=== PATIENT | female | born 1975 | race Caucasian/White ===

== ENCOUNTER 2021-12-09 18:38 | Inpatient (IN) | payer BC, SELFPAY ==
[2021-12-09 18:39] VITALS: BP 147/82; PULSE 115; RESP 20; TEMP 37.2; O2SAT 98; BMI 47.8
--- NOTE | 2021-12-09 18:55 | CT_ITS ---
STUDY: CT PELVIS WITH CONTRAST REASON FOR EXAM: Female, 46 years old. Buttock abscess RADIATION DOSAGE (If Supplied By Facility): CTDIvol = ( 28.21 ) mGy, DLP = ( 924.60 ) mGycm TECHNIQUE: Transaxial imaging of the pelvis was performed without oral contrast. IV 100mL Isovue-300 was administered intravenously. Individualized dose optimization techniques were used for this CT. COMPARISON: None. FINDINGS: Normal urinary bladder. Normal uterus. Normal visualized small intestine. Normal visualized colon. Normal appendix. There is no pelvic fluid. There is no pelvic lymphadenopathy or mass lesion. Normal visualized pelvic arteries. Extensive subcutaneous edema around the buttocks with an area of more focal fluid attenuation may indicate cellulitis. No focal abscess is identified. Normal osseous structures. CT/Pelvis WITH IV Contrast IMPRESSION: Extensive subcutaneous edema around the buttocks with an area of more focal fluid attenuation may indicate cellulitis/phlegmon. No focal abscess is identified. Electronically Signed: Chago Mera MD at 19:58 EDT ,
--- NOTE | 2021-12-09 18:56 | EX.ED.DYSGE1 ---
HPI History of Present Illness Chief Complaint: Abscess Detail of Chief Complaint: Left buttock abscess that started 5 days ago Informant: patient Narrative Narrative: Patient presents with soft tissue swelling and suspected abscess to left buttock that started 5 days ago. Patient denies any fevers or chills or sweats. Patient went to urgent care and was referred to the ER. Patient complains of pain to the area. PFSH PFSH Home Medications ibuprofen 600 mg PO Q6H PRN PRN #30 tablet 07/29/13 [Rx Last Taken Unknown] Allergy/AdvReac Type Severity Reaction Status Date / Time naproxen [From Naprosyn] Allergy Itching Verified 12/09/21 18:39 Family History Other Diabetes Heart disease Hypertension Surgical History H/O removal of cyst History of section History of cholecystectomy History of tonsillectomy Social History Smoking Status: Current every day smoker ROS ROS ED Constitutional Constitutional ED: Reports systems reviewed and no addt'l complaints, except as documented; Denies body ache(s), change in weight or chills Eyes Eyes: Denies acute decrease in peripheral vision, change in vision, double vision or loss of vision ENT ENT ED: Reports none; Denies ear pain, lip swelling, loss taste/smell, neck pain, otalgia or sore throat Cardiovascular Cardiovascular: Reports none; Denies abdominal pain, chest pain with activity, leg edema, lightheadedness, palpitations, rapid heart rate or syncope Respiratory/Chest Respiratory/Chest: Reports none; Denies change in mental status, dry cough, dyspnea, hemoptysis, shortness of breath at rest or shortness of breath with exertion Gastrointestinal Gastrointestinal: Reports none; Denies abdominal pain, change in stool character, diarrhea, hematemesis, hematochezia, melena, rectal bleeding or vomiting Genitourinary Genitourinary ED: Reports none; Denies abdominal discomfort, anuria, dysuria, genital pain or polyuria Musculoskeletal Musculoskeletal: Reports none and other Details: Left buttock abscess ; Denies arthralgias, back pain, difficulty walking, extremity pain, muscle weakness or myalgias Integumentary Reports none; Denies abscess or rash Neurologic Neurologic: Reports none; Denies abnormal gait, confusion, focal weakness, frequent falls, headache(s), loss of vision, numbness, paresthesias, radicular pain, vertigo or weakness Psychiatric Psychiatric: Reports systems reviewed and no addt'l complaints, except as documented and none; Denies behavioral changes, confusion, difficulty concentrating, hallucinations, suicidal ideation, tactile hallucinations or visual hallucinations Endocrine Endocrinology: Denies none, cold intolerance, excessive sweating, fatigue or heat intolerance Hematologic/Lymphatic Hematologic/Lymphatic: Reports none; Denies anemia, easy bleeding or easy bruising Allergic/Immunologic Allergic/Immunologic ED: Denies as per HPI, none, lip swelling, mouth swelling, throat swelling, tongue swelling or hives EXAM Physical Exam Const Vital Signs: 12/09/21 18:39 12/09/21 20:47 Temperature 99.0 F 99.6 F H Temperature Source Oral Temporal Pulse Rate 115 H 113 H Respiratory Rate 20 H 18 Blood Pressure 147/82 H 157/103 H Blood Pressure Mean 103 121 Pulse Ox 98 100 Oxygen Delivery Method Room Air Room Air Positive well nourished and well developed General Appearance ED: well developed and NAD HEENT Reports TM's clear and moist mucous membranes normocephalic and atraumatic; Negative for trauma or tenderness Tympanic Membrane ED: Yes TM's clear Eyes PERRL and EOMs intact bilaterally General Eye ED: Negative for pale conjunctiva or scleral icterus Neck no lymphadenopathy, supple and no JVD General: Negative for tenderness Chest Wall inspection of chest normal and palpation of chest normal Chest: Negative for tenderness Resp normal respiratory effort and clear to auscultation bilaterally Effort and Inspection: Negative for respiratory distress or pain with movement Auscultation: Negative for rhonchi, wheezes or diminished lung sounds Cardio regular rate, regular rhythm, S1 normal heart sound, S2 normal heart sound and no murmurs Peripheral Pulses: pulses 2+ throughout GI normal to inspection, nondistended, normoactive bowel sounds, soft to palpation, non-tender, non-distended and no masses Back/Spine no CVA tenderness and no thoracic nor lumbar tenderness Back/Spine Narrative: Evaluation of the left buttock does reveal superior medial aspect a area of soft tissue swelling and induration that is very tender to palpation. No significant fluctuance noted. The erythema and induration actually crosses the midline and seems to involve the right side of the buttock. Extremity normal to inspection General Extremety ED: Negative for edema General Extremity: Negative for edema Neuro oriented x3, CN's II-XII intact bilaterally, no sensory deficits noted and gait normal Sensorium / Orientation: awake, alert, oriented to person, oriented to place and oriented to time Motor Exam: strength 5/5 throughout and strength abnormal Psych mental status grossly normal Skin no rashes or lesions noted and no wounds MDM MDM MDM Narrative Medical decision making narrative: IV line established on arrival. Patient was noted to have a elevated white blood cell count of 21,000. She was started on Zosyn 4.5 g IV. Patient has low-grade temp and tachycardia therefore she had blood cultures ordered and lactate ordered the results of which are pending. CT scan of the pelvis with IV contrast obtained was read by radiology is extensive subcutaneous edema around the buttocks with area of more focal fluid attenuation may indicate cellulitis or phlegmon no focal abscess was identified. I did discuss these results with general surgeon on-call Dr. Chao Burks who recommended admission to medicine for IV antibiotics and should she develop fluctuance or worsening symptoms he would be happy to consult on the case for possible incision and drainage. Case will be discussed with hospitalist evaluate patient for admission Lab Data Attestation: I reviewed the patient's lab results. Labs: Laboratory Results - last 24 hr 12/09/21 12/09/21 12/09/21 19:03 19:03 20:34 WBC 21.1 H RBC 4.20 Hgb 12.6 Hct 37.7 MCV 89.8 MCH 30.0 MCHC 33.4 RDW Std Deviation 42.2 RDW Coeff of Daron 12.9 Plt Count 211 MPV 10.4 Immature Gran % (Auto) 0.500 Neut % (Auto) 80.5 H Lymph % (Auto) 10.4 L [place] % (Auto) 7.5 Eos % (Auto) 0.9 Baso % (Auto) 0.2 Absolute Neuts (auto) 17.0 H Absolute Lymphs (auto) 2.20 Nucleated RBC % 0 Differential Comment SCANNED Diff Path Review May foll Sodium 135 L Potassium 3.8 Chloride 106 Carbon Dioxide 28.0 Anion Gap 1 L BUN 13 Creatinine 0.70 Estim Creat Clear Calc 84.84 Est GFR (MDRD) Af Amer 116 Est GFR (MDRD) Non-Af 95 BUN/Creatinine Ratio 18.4 Glucose 103 Lactic Acid 0.7 Calcium 8.6 Radiography Diagnostic Testing: Clinical Impression(s) from Imaging Studies Pelvis CT 12/09/21 18:55 IMPRESSION: Extensive subcutaneous edema around the buttocks with an area of more focal fluid attenuation may indicate cellulitis/phlegmon. No focal abscess is identified. Electronically Signed: Chago Mera MD at 19:58 EDT , Discharge Plan Dx/Rx/DC Orders Clinical Impression: Cellulitis of buttock, Sepsis, Leukocytosis Disposition Disposition: Acute Care Hospital [facility]
[2021-12-09 19:45] LABS: Basophil# 0.04 X10^3/uL; Basophil% 0.2 % (0-1); Eosinophils% 0.9 % (0-5); Hematocrit 37.7 % (37-47); Hemoglobin 12.6 g/dL (12.0-15.0); Lymphocyte % 10.4 % (19-41); Mean Corp Hgb Conc 33.4 g/dL (32-36); Mean Corpuscular Volume 89.8 fL (81-99); Mean Platelet Vol. 10.4 fl (6.2-12.0); Monocyte# 1.59 X10^3/uL; Monocyte% 7.5 % (0-10); NRBC Flagged by Analyzer 0 % (0-5); Neutrophil # 16.99 X10^3/uL (2.7-7.7); Neutrophil % 80.5 % (47-70); POSITIVE DIFFERENTIAL YES; Platelet Count 211 K/mm3 (150-450); RBC Distribution Width CV 12.9 % (11.6-14.6); RBC Distribution Width SD 42.2 fl (35.1-43.9); White Blood Count 21.1 K/mm3 (4.4-11.0)
[2021-12-09 19:51] LABS: Differential Indicated SCAN CRITERIA MET
[2021-12-09 19:53] LABS: Anion Gap 1 (5-15); BUN 13 mg/dL (7-18); BUN/Creat Ratio 18.4 RATIO (10-20); Calcium,Total 8.6 mg/dL (8.5-10.1); Chloride 106 mmol/L (98-107); EST Glomerular Filtration Rate 95 mL/min (>60); Est Glom Filt Rate - Afr Amer 116 mL/min (>60); Estimated Creatinine Clearance 84.84 ml/min; Glucose 103 mg/dL (74-106); Potassium 3.8 mmol/L (3.5-5.1); Sodium Level 135 mmol/L (136-145)
[2021-12-09 20:17] LABS: Differential Comment SCANNED
[2021-12-09 20:47] VITALS: BP 157/103; PULSE 113; RESP 18; TEMP 37.6; O2SAT 100
[2021-12-09 21:10] LABS: Lactic Acid 0.7 mmol/L (0.4-1.9)
--- NOTE | 2021-12-09 21:19 | HP.PCM.HOS_ITS ---
HPI - General HPI Narrative NUBIA BARRON, is a 46 F with a significant history of tobacco abuse and obesity who presents to the emergency department with a 4-day history of progressively worsening area of swelling on her buttocks. Associated with her symptoms is redness, hotness and tenderness of the above area. She does not associate her presenting symptoms with any trauma. She denies fever, chills, nausea and vomiting. She denies anorexia. She went to a mini clinic at [facility] and she was directed to come to the emergency depart ment. At the emergency department, ED doctor obtained CAT scan and discuss case with general surgeon who recommended medicine admission with antibiotics; and with no surgical intervention at this time; and if patient is to worsening surgery consulted. PFSH Home Medications ibuprofen 600 mg PO Q6H PRN PRN #30 tablet 07/29/13 [Rx Last Taken Unknown] Allergy/AdvReac Type Severity Reaction Status Date / Time naproxen [From Naprosyn] Allergy Itching Verified 12/09/21 18:39 Family History Other Diabetes Heart disease Hypertension Surgical History H/O removal of cyst History of section History of cholecystectomy History of tonsillectomy Social History Smoking Status: Current every day smoker ROS ROS Narrative Constitutional: Denies fever, chills, fatigue, anorexia and change in weight Eyes: Denies blurry vision, change in eye color, change in vision, discharge from eye(s), double vision, erythema, eye pain, loss of vision or other HEENT: Denies abnormal hearing, dysphagia, ear pain, epistaxis, headache(s), hearing loss, nasal congestion, nasal discharge, post nasal drip, sinus pressure, sore throat or other Cardiovascular: Denies chest pain or palpitations. Denies dyspnea on exertion, orthopnea and paroxysmal nocturnal dyspnea Respiratory/Chest: Denies cough, excessive phlegm production, shortness of breath with exertion and wheezing Gastrointestinal: Denies abdominal pain, coffee ground emesis, constipation, diarrhea, dyspepsia, hematemesis, hematochezia, loose stools, melena, nausea, vomiting or other Genitourinary: Denies burning urination, difficulty urinating, dysuria, hematuria, nocturia, urinary frequency, urinary hesitancy, urinary incontinence, urinary urgency or other Musculoskeletal: Denies arthralgias, back pain, joint pain, joint stiffness, joint swelling, myalgias, neck pain or other Neurologic: Denies abnormal gait, abnormal speech, confusion, disequilibrium, dizziness, focal weakness, headache(s), numbness, paresthesias, seizure-like activity, seizures, syncope, tingling, tremor(s) or other Psychiatric: Denies anxiety, depression, homicidal ideation, suicidal ideation or other Endocrinology: Denies change in body appearance, cold intolerance, excessive sweating, heat intolerance, polydipsia, polyuria or other Hematologic/Lymphatic: Denies anemia, easy bleeding, easy bruising, lymphadenopathy or other Integumentary: Area of swelling on buttocks, erythema, increased warmth and tenderness at the area of swelling. Allergic/Immunologic: Denies rhinitis, hives, eczema, or other Vital Signs Vital Signs Vital Signs: 12/09/21 18:39 12/09/21 20:47 Temperature 99.0 F 99.6 F H Temperature Source Oral Temporal Pulse Rate 115 H 113 H Respiratory Rate 20 H 18 Blood Pressure 147/82 H 157/103 H Blood Pressure Mean 103 121 Pulse Ox 98 100 Oxygen Delivery Method Room Air Room Air Weight Weight: 122.47 kg Body Mass Index (BMI) 47.8 Physical Exam Narrative Physical exam: General: Well-nourished, well-developed. Head: Normocephalic, atraumatic, no tenderness Eyes: Vision is grossly intact. EOMI ENT, no trauma, moist mucous membranes, no rhinorrhea Neck: Nontender, full range of motion, no spinal tenderness, deformities, step- off CVS: Regular rate and rhythm. S1-S2 present. No murmur, gallop or rub. Respiratory : clear to auscultation bilaterally, chest wall nontender, no wheezing Abdomen: Soft, nontender, nondistended, normal bowel sounds, no masses : Deferred Back: Nontender, no CVA tenderness, no midline spinal tenderness, deformities, step-offs Extremities: Nontender full range of motion, no trauma Skin: Induration and erythema of bilateral gluteal fold with left worse than right. Mild serous drainage from induration. Tender area of induration at left gluteal fold. Neuro: Alert, oriented, cranial nerves II through XII grossly intact. Psychiatry: Normal mood. Normal affect. Not depressed. Not anxious. Results Lab / Micro Data Result Diagrams: 12/09/21 19:03 12/09/21 19:03 Labs: Laboratory Results - last 24 hr 12/09/21 19:03: WBC 21.1 H, RBC 4.20, Hgb 12.6, Hct 37.7, MCV 89.8, MCH 30.0, MCHC 33.4, RDW Std Deviation 42.2, RDW Coeff of Daron 12.9, Plt Count 211, MPV 10 .4, Immature Gran % (Auto) 0.500, Neut % (Auto) 80.5 H, Lymph % (Auto) 10.4 L, [place] % (Auto) 7.5, Eos % (Auto) 0.9, Baso % (Auto) 0.2, Absolute Neuts (auto) 17.0 H, Absolute Lymphs (auto) 2.20, Nucleated RBC % 0, Differential Comment SCANNED, Diff Path Review May foll 12/09/21 19:03: Sodium 135 L, Potassium 3.8, Chloride 106, Carbon Dioxide 28.0, Anion Gap 1 L, BUN 13, Creatinine 0.70, Estim Creat Clear Calc 84.84, Est GFR (MDRD) Af Amer 116, Est GFR (MDRD) Non-Af 95, BUN/Creatinine Ratio 18.4, Glucose 103, Calcium 8.6 12/09/21 20:34: Lactic Acid 0.[address] 12/09/21 18:55 IMPRESSION: Extensive subcutaneous edema around the buttocks with an area of more focal fluid attenuation may indicate cellulitis/phlegmon. No focal abscess is identified. Electronically Signed: Chago Mera MD at 19:58 EDT , Assessment & Plan Assessment/Plan (1) Cellulitis of buttock: (2) Obesity: QUALIFIERS: Body mass index: BMI 45.0-49.9 Obesity classification : adult class 3 (BMI >= 40) Obesity type: due to excess calories Serious obesity comorbidity presence: without serious comorbidity Qualified Code(s): E66.01 - Morbid (severe) obesity due to excess calories; Z68.42 - Body mass index [BMI] 45.0-49.9, adult PLAN: Cellulitis/phlegmon Pelvis CT was visualized and independently interpreted. I agree with radiologist impression above. Patient meets SIRS criteria with heart rate of more than 90; white count of more than 12 (his white count is 21.1 with neutrophilia and lymphopenia.) Her respiratory rate is less than 22. She has no encephalopathy. qSOFA is 0. Sepsis ruled out. Lactic acid is 0.7. Blood culture x2 was obtained emergency department, follow. Received Zosyn at emergency department. Vancomycin ordered for MRSA coverage. Unasyn ordered. Trend CBC and BMP. Morbid Obesity: BMI: 47.8 kg/m?. Complicates care. Lifestyle modification recommended. Tobacco abuse: Patient has been cutting back and attempting to stop. Counseled. Declined nicotine patch. DVT prophylaxis Subcutaneous Lovenox ordered. Charges/Coding Visit Charges Inpatient E&M: 64819 Init Hosp L2
[2021-12-09 21:35] VITALS: BP 108/90; PULSE 117; RESP 18; TEMP 37.6; O2SAT 98
[2021-12-09 22:22] VITALS: BMI 49.3
[2021-12-09 22:26] VITALS: BP 164/59; PULSE 117; RESP 16; TEMP 37.7; O2SAT 99
[2021-12-09] MEDS: 0.9% Saline Lock 10 ML Syringe IV (22:48)
[2021-12-09] MEDS: Enoxaparin 40 MG/0.4 ML Syringe SC (22:54)
--- NOTE | 2021-12-09 23:50 | PCM.RX.CS ---
Consult Pharmacy has been consulted to manage selected antiobiotic: Vancomycin Type of Consult: New start Suspected Infection: Skin/Soft tissue Prior Doses of Antibiotics Received/Current Regimen: Medications Vancomycin HCl 2,000 mg/ (Sodium Chloride) 540 mls @ 250 mls/hr IV Q12H NEHA Vancomycin HCl 2,000 mg/ (Sodium Chloride) 540 mls @ 250 mls/hr IV X1 ONE Stop: 12/10/21 01:09 Last Admin: 12/09/21 22:48 Dose: 250 mls/hr Labs: Sodium 135 mmol/L (136-145) L 12/09/21 19:03 Potassium 3.8 mmol/L (3.5-5.1) 12/09/21 19:03 Chloride 106 mmol/L (98-107) 12/09/21 19:03 Carbon Dioxide 28.0 mmol/L (21.0-32.0) 12/09/21 19:03 Anion Gap 1 (5-15) L 12/09/21 19:03 BUN 13 mg/dL (7-18) 12/09/21 19:03 Creatinine 0.70 mg/dL (0.55-1.02) 12/09/21 19:03 Est GFR (MDRD) Af Amer 116 mL/min (>60) 12/09/21 19:03 Est GFR (MDRD) Non-Af 95 mL/min (>60) 12/09/21 19:03 BUN/Creatinine Ratio 18.4 RATIO (10-20) 12/09/21 19:03 Glucose 103 mg/dL (74-106) 12/09/21 19:03 Weight used for dosin.3 kg Estimated Creatinine Clearance: 85 Goal Trough: 15-20 mcg/mL Pharmacy Plan for Drug Dosing: Pharmacy Service will continue to monitor and adjust dosing as required. Follow-Up Labs: Trough Vancomycin Labs to be done on [date and time ordered]: 12/11/21 @1030
[2021-12-10] MEDS: Nystatin Powder 15gm Bottle 1 APPLIC TOPICAL ×3 (01:15→22:49)
[2021-12-10 05:22] VITALS: BP 129/65; PULSE 105; RESP 18; TEMP 37.6; O2SAT 97
[2021-12-10 06:08] LABS: Absolute Lymphocyte Count 2.04 X10^3/uL (0.83-4.51); Absolute Neutrophil Count 12.7 X10^3/uL (2.0-7.7); Basophil# 0.03 X10^3/uL; Basophil% 0.2 % (0-1); Eosinophil# 0.14 X10^3/uL; Eosinophils% 0.9 % (0-5); Hematocrit 35.1 % (37-47); Hemoglobin 11.9 g/dL (12.0-15.0); Lymphocyte # 2.04 X10^3/ul (0.83-4.51); Lymphocyte % 12.5 % (19-41); Mean Corp Hgb Conc 33.9 g/dL (32-36); Mean Corpuscular Hgb 29.9 pg (27.0-32.0); Mean Corpuscular Volume 88.2 fL (81-99); Mean Platelet Vol. 10.4 fl (6.2-12.0); Monocyte# 1.29 X10^3/uL; Monocyte% 7.9 % (0-10); NRBC Flagged by Analyzer 0 % (0-5); Neutrophil # 12.71 X10^3/uL (2.7-7.7); Neutrophil % 77.8 % (47-70); Platelet Count 191 K/mm3 (150-450); RBC Distribution Width CV 12.8 % (11.6-14.6); RBC Distribution Width SD 41.5 fl (35.1-43.9); Red Blood Count 3.98 M/mm3 (4.2-5.4); White Blood Count 16.3 K/mm3 (4.4-11.0)
[2021-12-10 06:38] LABS: Anion Gap 6 (5-15); BUN 7 mg/dL (7-18); BUN/Creat Ratio 17.3 RATIO (10-20); Calcium,Total 7.9 mg/dL (8.5-10.1); Chloride 106 mmol/L (98-107); EST Glomerular Filtration Rate 181 mL/min (>60); Est Glom Filt Rate - Afr Amer 219 mL/min (>60); Estimated Creatinine Clearance 148.47 ml/min; Glucose 97 mg/dL (74-106); Potassium 3.5 mmol/L (3.5-5.1); Sodium Level 135 mmol/L (136-145)
[2021-12-10] MEDS: Enoxaparin 40 MG/0.4 ML Syringe SC ×2 (07:28→22:49)
[2021-12-10 09:23] VITALS: BP 147/73; PULSE 106; RESP 18; TEMP 36.9; O2SAT 97
--- NOTE | 2021-12-10 11:55 | CASEMGMT ---
RN CM [employer] REPAIRER CM to room to meet with patient for initial transition planning/care coordination assessment. JENY BENITEZ introduced self and role at [facility]. Pt voices understanding and consents to assessment at this time. Pt resting in bed in no distress at this time. Pt is A/O at this time and answers all questions appropriately. Care providers, pharmacy, and demographics verified/updated at this time. PCP: No PCP. Provided w/list of local PCP's Specialists: none Preferred Pharmacy: [facility] Insurance: [place] Prescription Benefit: Yes Living Will/HPOA: States does not have LW or HCPOA . Interested in more information but states does not want to talk with SW at this time to complete paperwork. Provided Social Service rac card with number to call if chooses in the future to utilize [facility] social work for advanced directive completion. LNOK: , Rian Living Arrangements: Lives w/Rian and 9-yr-old son in 2-story home. 5-10 steps to enter. Denies difficulty w/stairs. Independent. Transportation: Pt states drives self and states no transportation concerns at this time. also drives. DME: Denies using any DME and denies needs. HHC/SNF: No hx of either. No needs identified Pt wishes to return home and states has no concerns with going home at time of discharge. Pt smokes <1 PPD. CM to follow for any discharge planning/needs. Pt voices no concerns/needs at this time. Advised pt to ask for CM if any questions/concerns/needs arise. Voices understanding. PLAN: Home [place] PARRA RN, CM
--- NOTE | 2021-12-10 12:19 | PCM.PN.HOSP ---
Subjective Subjective buttocks feeling better. Objective Data Objective Data Vital Signs: Vital Signs Temp Pulse Resp BP Pulse Ox 36.9 C 106 H 18 147/73 H 97 12/10/21 09:23 12/10/21 09:23 12/10/21 09:23 12/10/21 09:23 12/10/21 09:23 Oxygen Delivery Method Room Air Weight: 126.3 kg Body Mass Index (BMI) 49.3 Intake & Output: Intake and Output for Last 24 Hours 12/08/21 12/09/21 12/10/21 23:59 23:59 23:59 Intake Total 101.5 / 101.5 1106.5 / 1106.5 Balance 101.5 / 101.5 1106.5 / 1106.5 Lab / Micro Data Result Diagrams: 12/10/21 05:02 12/10/21 05:02 Labs: Laboratory Results - last 24 hr 12/09/21 19:03: WBC 21.1 H, RBC 4.20, Hgb 12.6, Hct 37.7, MCV 89.8, MCH 30.0, MCHC 33.4, RDW Std Deviation 42.2, RDW Coeff of Daron 12.9, Plt Count 211, MPV 10.4, Immature Gran % (Auto) 0.500, Neut % (Auto) 80.5 H, Lymph % (Auto) 10.4 L, [place] % (Auto) 7.5, Eos % (Auto) 0.9, Baso % (Auto) 0.2, Absolute Neuts (auto) 17.0 H, Absolute Lymphs (auto) 2.20, Nucleated RBC % 0, Differential Comment SCANNED, Diff Path Review January12/09/21 19:03: Sodium 135 L, Potassium 3.8, Chloride 106, Carbon Dioxide 28.0, Anion Gap 1 L, BUN 13, Creatinine 0.70, Estim Creat Clear Calc 84.84, Est GFR (MDRD) Af Amer 116, Est GFR (MDRD) Non-Af 95, BUN/Creatinine Ratio 18.4, Glucose 103, Calcium 8.6 12/09/21 20:34: Lactic Acid 0.7 12/10/21 05:02: WBC 16.3 H, RBC 3.98 L, Hgb 11.9 L, Hct 35.1 L, MCV 88.2, MCH 29.9, MCHC 33.9, RDW Std Deviation 41.5, RDW Coeff of Daron 12.8, Plt Count 191, MPV 10.4, Immature Gran % (Auto) 0.700, Neut % (Auto) 77.8 H, Lymph % (Auto) 12.5 L, [place] % (Auto) 7.9, Eos % (Auto) 0.9, Baso % (Auto) 0.2, Absolute Neuts (auto) 12.7 H, Absolute Lymphs (auto) 2.04, Nucleated RBC % 0 12/10/21 05:02: Sodium 135 L, Potassium 3.5, Chloride 106, Carbon Dioxide 23.0, Anion Gap 6, BUN 7, Creatinine 0.40 L, Estim Creat Clear Calc 148.47, Est GFR (MDRD) Af Amer 219, Est GFR (MDRD) Non-Af 181, BUN/Creatinine Ratio 17.3, Glucose 97, Calcium 7.9 L Radiography Diagnostic Testing: Radiology Impression Pelvis CT 12/09/21 18:55 IMPRESSION: Extensive subcutaneous edema around the buttocks with an area of more focal fluid attenuation may indicate cellulitis/phlegmon. No focal abscess is identified. Electronically Signed: Chago Mera MD at 19:58 EDT , Physical Exam Const alert and no apparent distress HEENT head/scalp atraumatic Head and Scalp: normocephalic Extremity normal to inspection Skin Skin Narrative: resolving erythema from line demarcation. expressed serosanguineous discharge from indurated area Neuro Sensorium / Orientation: awake and alert Psych affect normal Assessment & Plan Assessment/Plan (1) Cellulitis of buttock: PLAN: 1. buttock cellulitis no obvious abscess on CT, but may be developing continue IV abx for now concern for MRSA check BCx check wound culture 2. VTE prophylaxis: LMWH Charges/Coding Visit Charges Inpatient E&M: 83337 Subs Hosp L2
[2021-12-10 13:50] VITALS: BP 121/61; PULSE 95; RESP 18; TEMP 37.3; O2SAT 99
[2021-12-10 13:57] LABS: Pathologist Review Reviewed
[2021-12-10 17:50] VITALS: O2SAT 99
[2021-12-10 20:00] VITALS: BP 137/86; PULSE 97; RESP 16; TEMP 36.7; O2SAT 97
[2021-12-10] MEDS: 0.9% Saline Lock 10 ML Syringe IV ×2 (20:11→20:14)
[2021-12-11 02:30] VITALS: BP 128/72; PULSE 88; RESP 18; TEMP 36.8; O2SAT 98
[2021-12-11 06:13] LABS: Absolute Neutrophil Count 7.6 X10^3/uL (2.0-7.7); Basophil# 0.03 X10^3/uL; Basophil% 0.3 % (0-1); Eosinophil# 0.35 X10^3/uL; Eosinophils% 3.2 % (0-5); Hematocrit 33.8 % (37-47); Hemoglobin 11.4 g/dL (12.0-15.0); Lymphocyte % 18.2 % (19-41); Mean Corp Hgb Conc 33.7 g/dL (32-36); Mean Corpuscular Hgb 29.9 pg (27.0-32.0); Mean Corpuscular Volume 88.7 fL (81-99); Mean Platelet Vol. 10.1 fl (6.2-12.0); Monocyte% 8.2 % (0-10); NRBC Flagged by Analyzer 0 % (0-5); Neutrophil # 7.64 X10^3/uL (2.7-7.7); Neutrophil % 69.6 % (47-70); Platelet Count 187 K/mm3 (150-450); RBC Distribution Width CV 12.8 % (11.6-14.6); RBC Distribution Width SD 41.7 fl (35.1-43.9); Red Blood Count 3.81 M/mm3 (4.2-5.4)
[2021-12-11 06:30] LABS: Anion Gap 3 (5-15); BUN 7 mg/dL (7-18); BUN/Creat Ratio 20.1 RATIO (10-20); Calcium,Total 8.3 mg/dL (8.5-10.1); Chloride 110 mmol/L (98-107); Creatinine, Serum 0.35 mg/dL (0.55-1.02); EST Glomerular Filtration Rate 215 mL/min (>60); Est Glom Filt Rate - Afr Amer 260 mL/min (>60); Estimated Creatinine Clearance 169.68 ml/min; Glucose 93 mg/dL (74-106); Potassium 3.4 mmol/L (3.5-5.1); Sodium Level 139 mmol/L (136-145)
[2021-12-11 07:25] VITALS: O2SAT 96
[2021-12-11 08:35] VITALS: BP 114/64; PULSE 93; RESP 18; TEMP 36.6; O2SAT 98
[2021-12-11] MEDS: Nystatin Powder 15gm Bottle 1 APPLIC TOPICAL ×2 (08:39→21:11)
[2021-12-11] MEDS: Enoxaparin 40 MG/0.4 ML Syringe SC ×2 (08:39→21:11)
[2021-12-11] MEDS: Lidocaine 1% (20 ml mdv) 20 ML Vial INFILT (11:14)
--- NOTE | 2021-12-11 11:15 | CON.PCM.SX_ITS ---
Assessment & Plan Assessment/Plan (1) Left buttock abscess: PLAN: Patient had a large area of cellulitis and on admission she had a CT scan which did not show any abscess but now she has developed drainage. I did recommend incision and drainage to the patient. I discussed the risks including allergy to bleeding, infection. Patient agreed to proceed. I drain the abscess at the bedside and cultured the wound and packed it with iodoform gauze. There was a rather large cavity. Nursing will change the packing twice a day. Continue antibiotics. Chao Burks MD Pager: [facility] [address] [place] [address] [facility] [address] [place] [address] Office: HPI Consult Data Date of Consult: 12/11/21 HPI Narrative HPI Narrative: NUBIA BARRON, is a 46 F who presented 2 days ago with buttock pain. Patient was admitted and started on IV antibiotics. She is not having spontaneous drainage from this area. She reports no nausea or vomiting. She says she has had boils in the past but nothing this large. She is not having any fevers or chills. PFSH Medical History Smoker Home Medications ibuprofen 600 mg PO Q6H PRN PRN #30 tablet 07/29/13 [Rx Last Taken Unknown] Allergy/AdvReac Type Severity Reaction Status Date / Time naproxen [From Naprosyn] Allergy Itching Verified 12/09/21 18:39 Family History Other Diabetes Heart disease Hypertension Surgical History (Updated 12/09/21 @ 22:35 by Fly Aranda) H/O removal of cyst History of section History of cholecystectomy History of repair of ACL History of tonsillectomy Social History Smoking Status: Current every day smoker tobacco type: cigarettes Physical Exam Const alert and oriented x3 Exam Limitations: no limitations HEENT normocephalic Eyes PERRL Neck full ROM Resp normal respiratory effort Cardio Rate: regular rate GI soft to palpation GI Narrative: Buttock with induration in the left superior area with surrounding erythema. Purulent spontaneous drainage from the central area Lab / Micro Data Result Diagrams: 12/11/21 05:32 12/11/21 05:32 Labs: Laboratory Results - last 24 hr 12/09/21 19:03: Diff Path Review Reviewed 12/11/21 05:32: WBC 11.0, RBC 3.81 L, Hgb 11.4 L, Hct 33.8 L, MCV 88.7, MCH 29.9, MCHC 33.7, RDW Std Deviation 41.7, RDW Coeff of Daron 12.8, Plt Count 187, MPV 10.1, Immature Gran % (Auto) 0.500, Neut % (Auto) 69.6, Lymph % (Auto) 18.2 L, [place] % (Auto) 8.2, Eos % (Auto) 3.2, Baso % (Auto) 0.3, Absolute Neuts (auto) 7.6, Absolute Lymphs (auto) 2.00, Nucleated RBC % 0 12/11/21 05:32: Sodium 139, Potassium 3.4 L, Chloride 110 H, Carbon Dioxide 26.0, Anion Gap 3 L, BUN 7, Creatinine 0.35 L, Estim Creat Clear Calc 169.68, Est GFR (MDRD) Af Amer 260, Est GFR (MDRD) Non-Af 215, BUN/Creatinine Ratio 20.1 H, Glucose 93, Calcium 8.3 L
--- NOTE | 2021-12-11 11:18 | PCM.OPRPT ---
Problems Associated Problem List Diagnoses (1) Left buttock abscess: Report of Operation Date of Procedure: 12/11/21 Pre-Operative Diagnosis: Left buttock abscess Post-Operative Diagnosis: Same Surgery/Procedure Performed:: Incision and drainage of left buttock abscess with packing Specimen's removed: Culture of left buttock purulent drainage Description of Procedure: Patient's left buttock area was prepped and draped in usual sterile fashion. The central area was injected with local anesthetic. Next using 11 blade scalpel a cruciate incision was created. There was return of purulent material. Hemostats were used to break down loculations and explore the field and the drainage was cultured. Next the cavity was packed with 1 inch iodoform gauze and a dressing was applied. Patient tolerated the procedure well.
[2021-12-11] MEDS: Acetaminophen 325 MG Tablet 650 MG PO ×3 (11:25→23:48)
[2021-12-11 11:28] LABS: Vancomycin, Trough Level 7.5 ug/mL (5.0-15.0)
--- NOTE | 2021-12-11 12:06 | PCM.PN.HOSP ---
Subjective Subjective Feels better. Objective Data Objective Data Vital Signs: Vital Signs Temp Pulse Resp BP Pulse Ox 36.6 C 93 18 114/64 98 12/11/21 08:35 12/11/21 08:35 12/11/21 08:35 12/11/21 08:35 12/11/21 08:35 Oxygen Delivery Method Room Air Weight: 126.3 kg Body Mass Index (BMI) 49.3 Intake & Output: Intake and Output for Last 24 Hours 12/09/21 12/10/21 12/11/21 23:59 23:59 23:59 Intake Total 101.5 / 101.5 2476.5 / 2476.5 764 / 764 Balance 101.5 / 101.5 2476.5 / 2476.5 764 / 764 Lab / Micro Data Result Diagrams: 12/11/21 05:32 12/11/21 05:32 Labs: Laboratory Results - last 24 hr 12/09/21 19:03: Diff Path Review Reviewed 12/11/21 05:32: WBC 11.0, RBC 3.81 L, Hgb 11.4 L, Hct 33.8 L, MCV 88.7, MCH 29.9, MCHC 33.7, RDW Std Deviation 41.7, RDW Coeff of Daron 12.8, Plt Count 187, MPV 10.1, Immature Gran % (Auto) 0.500, Neut % (Auto) 69.6, Lymph % (Auto) 18.2 L, [place] % (Auto) 8.2, Eos % (Auto) 3.2, Baso % (Auto) 0.3, Absolute Neuts (auto) 7.6, Absolute Lymphs (auto) 2.00, Nucleated RBC % 0 12/11/21 05:32: Sodium 139, Potassium 3.4 L, Chloride 110 H, Carbon Dioxide 26.0, Anion Gap 3 L, BUN 7, Creatinine 0.35 L, Estim Creat Clear Calc 169.68, Est GFR (MDRD) Af Amer 260, Est GFR (MDRD) Non-Af 215, BUN/Creatinine Ratio 20.1 H, Glucose 93, Calcium 8.3 L 12/11/21 10:45: Vancomycin Trough 7.5 Micro: Microbiology 12/10/21 13:45 Wound - Buttock Gram Stain - Final 12/10/21 13:45 Wound - Buttock Wound Culture - Preliminary Staphylococcus aureus Physical Exam Const alert and no apparent distress Skin Skin Narrative: Resolving erythema over the patient's buttocks. Fluctuant lesion noted now. Developing abscess suspected. Assessment & Plan Assessment/Plan (1) Cellulitis of buttock: PLAN: 1. buttock cellulitis and abscess no obvious abscess on CT, but subsequently developed. Discussed with Dr. Arvizu and he performed a bedside I+D. continue IV abx for now concern for MRSA check BCx wound culture showing S. aureus 2. VTE prophylaxis: LMWH Charges/Coding Visit Charges Inpatient E&M: 34274 [facility] Hosp L1
--- NOTE | 2021-12-11 12:48 | PCM.RX.CS ---
Consult Pharmacy has been consulted to manage selected antiobiotic: Vancomycin Type of Consult: Follow-up Suspected Infection: Skin/Soft tissue Prior Doses of Antibiotics Received/Current Regimen: current dose is 2000mg IV q12h Labs: Sodium 139 mmol/L (136-145) 12/11/21 05:32 Potassium 3.4 mmol/L (3.5-5.1) L 12/11/21 05:32 Chloride 110 mmol/L (98-107) H 12/11/21 05:32 Carbon Dioxide 26.0 mmol/L (21.0-32.0) 12/11/21 05:32 Anion Gap 3 (5-15) L 12/11/21 05:32 BUN 7 mg/dL (7-18) 12/11/21 05:32 Creatinine 0.35 mg/dL (0.55-1.02) L 12/11/21 05:32 Est GFR (MDRD) Af Amer 260 mL/min (>60) 12/11/21 05:32 Est GFR (MDRD) Non-Af 215 mL/min (>60) 12/11/21 05:32 BUN/Creatinine Ratio 20.1 RATIO (10-20) H 12/11/21 05:32 Glucose 93 mg/dL (74-106) 12/11/21 05:32 Vancomycin Trough 7.5 ug/mL (5.0-15.0) 12/11/21 10:45 Microbiology: Microbiology 12/10/21 13:45 Wound - Buttock Gram Stain - Final 12/10/21 13:45 Wound - Buttock Wound Culture - Preliminary Staphylococcus aureus Weight used for dosin.3 kg Estimated Creatinine Clearance: 169 ml/min Goal Trough: 15-20 mcg/mL Pharmacy Plan for Drug Dosing: The vanc trough drawn at 10:45 today (drawn 12 hours after the previous dose) came back as 7.5. The patient has had only 3 doses so far but it is much lower than the goal range so will increase dosing to 1500mg IV q8h, starting tonight since the 2000mg dose was already given this morning. Will recheck a trough level before the 4th new dose tomorrow night. Pharmacy Service will continue to monitor and adjust dosing as required. Follow-Up Labs: Trough Vancomycin Labs to be done on [date and time ordered]: 12/12/21 19:30
[2021-12-11 15:21] VITALS: BP 123/60; PULSE 93; RESP 18; TEMP 36.5; O2SAT 97
--- NOTE | 2021-12-11 15:21 | CASEMGMT ---
JENY BENITEZ in to pt room, pt states her is able to perform dressing changes for her at home twice daily. She states that he can come in to observe the dressing change but they have a 10 year old that will also need to come as they do not have childcare for him. Spoke with wound nurse, who states pt will be sent home with bottle of iodoform and should not need any more than this. Spoke with food operations manager who states 10 year old can come and sit outside of room while learns dressing change. This exception will be made. Pt will have to have door manager transport call to floor to get the ok. Notified charge nurse of this to pass this on. JENY BENITEZ back into the pt room, she is aware of iodoform to go home with her. She is able to buy the 4x4s at [employer], denies difficulty with this. She states is able to come in tomorrow, aware that they will need to call the floor with her son being under visitor age. Spoke with pt nurse to also pass this on in handoff. Pt denies further needs.
[2021-12-11 21:07] VITALS: BP 136/83; PULSE 90; RESP 18; TEMP 36.9; O2SAT 99
[2021-12-11 23:52] VITALS: BP 119/73; PULSE 93; RESP 18; TEMP 36.9; O2SAT 96
[2021-12-12 06:39] VITALS: BP 144/95; PULSE 87; RESP 18; TEMP 36.6; O2SAT 97
[2021-12-12] MEDS: Acetaminophen 325 MG Tablet 650 MG PO ×2 (06:41→14:35)
[2021-12-12 07:19] VITALS: O2SAT 97
[2021-12-12 07:29] LABS: Anion Gap 5 (5-15); BUN 7 mg/dL (7-18); BUN/Creat Ratio 16.5 RATIO (10-20); Chloride 110 mmol/L (98-107); Creatinine, Serum 0.42 mg/dL (0.55-1.02); EST Glomerular Filtration Rate 172 mL/min (>60); Est Glom Filt Rate - Afr Amer 208 mL/min (>60); Glucose 90 mg/dL (74-106); Potassium 3.4 mmol/L (3.5-5.1); Sodium Level 140 mmol/L (136-145)
--- NOTE | 2021-12-12 07:44 | PN.SURG_ITS ---
Subjective Subjective Patient reports feeling much better this morning Objective Data Objective Data Vital Signs: Vital Signs Temp Pulse Resp BP Pulse Ox 97.9 F 87 18 144/95 H 97 12/12/21 06:39 12/12/21 06:39 12/12/21 06:39 12/12/21 06:39 12/12/21 06:39 Oxygen Delivery Method Room Air Weight: 278 lb 7.101 oz Body Mass Index (BMI) 49.3 Intake & Output: Intake and Output for Last 24 Hours 12/10/21 12/11/21 12/12/21 23:59 23:59 23:59 Intake Total 2476.5 / 2476.5 2808 / 2808 112 / 112 Balance 2476.5 / 2476.5 2808 / 2808 112 / 112 Lab / Micro Data Result Diagrams: 12/11/21 05:32 12/12/21 06:32 Labs: Laboratory Results - last 24 hr 12/11/21 10:45: Vancomycin Trough 7.5 12/12/21 06:32: Sodium 140, Potassium 3.4 L, Chloride 110 H, Carbon Dioxide 25.0, Anion Gap 5, BUN 7, Creatinine 0.42 L, Estim Creat Clear Calc 141.40, Est GFR (MDRD) Af Amer 208, Est GFR (MDRD) Non-Af 172, BUN/Creatinine Ratio 16.5, Glucose 90, Calcium 8.0 L Micro: Microbiology 12/10/21 13:45 Wound - Buttock Gram Stain - Final 12/10/21 13:45 Wound - Buttock Wound Culture - Preliminary Staphylococcus aureus Physical Exam Const no apparent distress Resp normal respiratory effort Cardio regular rate and regular rhythm GI soft to palpation Assessment & Plan Assessment/Plan (1) Left buttock abscess: PLAN: Patient had drainage of buttock abscess yesterday. Packing is being changed twice daily. Continue antibiotics. Culture pending. Chao Burks MD Pager: [facility] [address] [place] [address], [address] [place] [address] Office:
[2021-12-12] MEDS: Nystatin Powder 15gm Bottle 1 APPLIC TOPICAL (08:14)
[2021-12-12] MEDS: Enoxaparin 40 MG/0.4 ML Syringe SC (08:14)
[2021-12-12 09:25] VITALS: BP 135/84; PULSE 81; RESP 16; TEMP 36.5; O2SAT 98
--- NOTE | 2021-12-12 12:13 | PCM.DC ---
Discharge Instructions Diet Discharge Diet: No restrictions Activity Discharge Activity: Return to Normal Activity Return to work on:: 12/17/21 Dressing / Incision Call your doctor if your incision/area has: Continuous Slow Oozing, Increased Pain/ Swelling, Increased Redness and Foul Smelling Discharge Cleanse incision/area with: Soap & Water and Keep Dressing Clean & Dry Additional Dressing/Incision Instructions:: No baths/swimming until wound completely healed. Follow Up Care Test Results: Test results from this visit will be discussed in further detail at your follow-up appointment, if applicable. Discharge Plan Admission Admit Date/Time: 12/09/21 21:11 Primary Reason for Your Visit: buttock abscess and cellulitis Attending Provider: Rogerio Alvarado Primary Care Provider: Care Physician,No Primary Consulting Providers: Chao Burks Discharge Orders/Prescriptions Prescriptions: New acetaminophen [Tylenol] 325 mg Tablet 650 mg PO Q6H PRN PRN (Reason: Pain Score 1-10/Temp > 100.7 F) Qty: 0 RF: 0 sulfamethoxazole-trimethoprim [Bactrim DS] 800-160 mg tablet 1 tab PO BID Qty: 12 RF: 0 Continued ibuprofen 600 MG tablet 600 mg PO Q6H PRN PRN (Reason: Pain) Qty: 30 RF: 0 Referrals / Follow Up: Care Physician,No Primary [Primary Care Provider] - Disposition Disposition (needs filled in before D/C Order can be placed): Home, Self Care
--- NOTE | 2021-12-12 12:17 | PCM.DC.SUM ---
Providers Date of Admission: 12/09/21 Primary Care Physician: Destiny Primary Care Phys Consultations 12/11/21 10:32 Consult: General Surgery Routine Consulting Provider: Chao Burks Reason for Consult: abscess EMERGENT Consult: No MD Notified: Yes Date Notified: 12/11/21 Time Notified: 10:32 Method of Notification: Verbal Reason For Visit: CELLULITIS OF BUTTOCKS Diagnosis Discharge Diagnosis (1) Left buttock abscess: Status: Acute Code(s): L02.31 - Cutaneous abscess of buttock Medications at Discharge Home Medications ibuprofen 600 mg PO Q6H PRN PRN #30 tablet 07/29/13 acetaminophen [Tylenol] 650 mg PO Q6H PRN PRN #0 tab 12/12/21 sulfamethoxazole-trimethoprim [Bactrim DS] 1 tab PO BID #12 tab 12/12/21 Hospital Course Operations None Procedures None Summary of Care Provided Minutes Spent on Discharge: 32 Hospital Course: 1. buttock cellulitis and abscess no obvious abscess on CT, but subsequently developed. Status post incision and drainage on the second. 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 Physical Exam Const alert and no apparent distress Extremity normal to inspection Skin Skin Narrative: Buttock wound visualized and slight purulent fluid expressed from the wound. But overall the erythema has resolved. Weight / BMI Weight Weight: 126.3 kg Body Mass Index (BMI) 49.3 ABG / Lab / Microbiology Data Result Diagrams: 12/11/21 05:32 12/12/21 06:32 Laboratory: Laboratory Results - last 24 hr 12/12/21 06:32: Sodium 140, Potassium 3.4 L, Chloride 110 H, Carbon Dioxide 25.0, Anion Gap 5, BUN 7, Creatinine 0.42 L, Estim Creat Clear Calc 141.40, Est GFR (MDRD) Af Amer 208, Est GFR (MDRD) Non-Af 172, BUN/Creatinine Ratio 16.5, Glucose 90, Calcium 8.0 L Microbiology: Microbiology 12/11/21 11:00 Wound Abcess - Buttock Gram Stain - Final 12/11/21 11:00 Wound Abcess - Buttock Wound Culture - Preliminary Staphylococcus aureus 12/09/21 20:35 Blood Culture (Wb) - Anticubital Left Blood Culture - Preliminary No growth in 48 hours. 12/09/21 20:34 Blood Culture (Wb) - Anticubital Right Blood Culture - Preliminary No growth in 48 hours. 12/10/21 13:45 Wound - Buttock Gram Stain - Final 12/10/21 13:45 Wound - Buttock Wound Culture - Final Meth. resistant Staph. aureus D/C Instructions Discharge Diet: No restrictions Return to work on: 12/17/21 Call your doctor if your incision/area has: Continuous Slow Oozing, Increased Pain/ Swelling, Increased Redness and Foul Smelling Discharge Cleanse incision/area with: Soap & Water and Keep Dressing Clean & Dry Additional Dressing/Incision Instructions: No baths/swimming until wound completely healed. Meaningful Use Info Meaningful Use Diagnoses (Choose all that apply): None applicable Discharge Plan Admission Admit Date/Time: 12/09/21 21:11 Primary Reason for Your Visit: buttock abscess and cellulitis Attending Provider: Rogerio Alvarado Primary Care Provider: Care Physician,No Primary Consulting Providers: Chao Burks Discharge Orders/Prescriptions Prescriptions: New acetaminophen [Tylenol] 325 mg Tablet 650 mg PO Q6H PRN PRN (Reason: Pain Score 1-10/Temp > 100.7 F) Qty: 0 RF: 0 sulfamethoxazole-trimethoprim [Bactrim DS] 800-160 mg tablet 1 tab PO BID Qty: 12 RF: 0 Continued ibuprofen 600 MG tablet 600 mg PO Q6H PRN PRN (Reason: Pain) Qty: 30 RF: 0 Referrals / Follow Up: Care Physician,No Primary [Primary Care Provider] - Disposition Disposition (needs filled in before D/C Order can be placed): Home, Self Care Charges/Coding Visit Charges Inpatient E&M: [id number] [facility] Hosp
--- NOTE | 2021-12-12 15:49 | NURSING ---
dressing changed per dr orders, shown how to do dressing. stated he can do the dressing.
== END 2021-12-12 16:00 | disposition home or self-care (01) | DRG 603 ==
LOC: ED 20:33 → MS3 21:57
PROVIDERS: Admitting Provider Hospitalist; Emergency Provider Emergency Medicine
DX: L03.317 Cellulitis of buttock (principal); Z68.42 Body mass index [BMI] 45.0-49.9, adult; B95.62 Methicillin resistant Staphylococcus aureus infection as the cause of diseases classified elsewhere; E66.01 Morbid (severe) obesity due to excess calories; F17.210 Nicotine dependence, cigarettes, uncomplicated; L02.31 Cutaneous abscess of buttock
CPT/HCPCS: 36415; 72193; 80048; 80202; 83605; 85025; 87040; 87070; 87075; 87077; 87186; 87205; 99284; 99406; J7040; J7050; Q9967; A4216; J0295